=== PATIENT | male | born 1980 | race Caucasian/White ===

== ENCOUNTER 2016-08-18 03:51 | Inpatient (IN) | payer MEDICAID ==
[~2016-08-18] VITALS: Ht 162.6 cm; Wt 72.7 kg
[~2016-08-18 03:51] MED LIST: OLAN10TA3 PO; QUET200T PO
[2016-08-18] MEDS ORDERED: LORazepam 2 MG TABLET PO PRN (06:00)
[2016-08-18] MEDS ORDERED: HALOPERIDOL 5 MG TABLET PO PRN (06:00)
[2016-08-18] MEDS ORDERED: ZOLPIDEM TARTRATE 10 MG TABLET PO PRN (06:00)
[2016-08-18 07:09] VITALS: BP 125/85
[2016-08-18] MEDS ORDERED: ALBUTEROL SULFATE HFA 90 MCG/PUFF 8 GM INHALER IH PRN (08:15)
[2016-08-18] MEDS ORDERED: BACITRACIN 28.4 GM OINTMENT TP PRN (08:15)
[2016-08-18] MEDS ORDERED: MAG HYDROX/AL HYDROX/SIMETH ES 30 ML SUSPENSION UDCUP PO PRN (08:15)
[2016-08-18] MEDS ORDERED: IBUPROFEN 600 MG TABLET PO PRN (08:15)
[2016-08-18] MEDS ORDERED: PETROLATUM,WHITE 71 GM JELLY TP PRN (08:15)
[2016-08-18] MEDS ORDERED: ACETAMINOPHEN 325 MG TABLET PO PRN (08:15)
[2016-08-18] MEDS ORDERED: CloNIDine HCL 0.1 MG TABLET PO PRN (08:15)
[2016-08-18] MEDS ORDERED: ONDANSETRON HCL 4 MG TABLET PO PRN (08:15)
[2016-08-18] MEDS ORDERED: LOPERAMIDE HCL 2 MG CAPSULE PO PRN (08:15)
[2016-08-18] MEDS ORDERED: MAGNESIUM HYDROXIDE SUSPENSION 30 ML UDCUP PO PRN (08:15)
[2016-08-18 08:16] VITALS: BP 125/84
[2016-08-18 08:21] LABS: ALANINE AMINOTRANSFERASE 69 U/L (12-78); ALBUMIN 3.7 g/dL (3.4-5.0); ANION GAP 8 mmol/L (8-16); ASPARTATE AMINOTRANSFERASE 22 U/L (15-37); BILIRUBIN,TOTAL 0.4 mg/dL (0.1-1.0); CALCIUM, TOTAL 8.5 mg/dL (8.8-10.5); CARBON DIOXIDE 30 mmol/L (22-29); CHLORIDE 104 mmol/L (98-107); CHOL/HDL RATIO 7.3 (4.2-7.3); CREATININE 1.04 mg/dL (0.60-1.30); GLOMERULAR FILTR. RATE CALC > 60 mL/min (>60); POTASSIUM 4.3 mmol/L (3.5-5.1); SODIUM SERUM 142 mmol/L (136-145); TOTAL PROTEIN, SERUM 6.8 g/dL (6.4-8.2); UREA NITROGEN, BLOOD 17 mg/dL (7-18)
[2016-08-18] MEDS ORDERED: BENZOCAINE/MENTHOL LOZENGE [8 LOZENGES/PACKET] MM PRN (08:30)
[2016-08-18] MEDS: FISH OIL/OMEGA-3 FATTY ACIDS 500 MG CAPSULE PO SCH (10:28)
[2016-08-18] MEDS: CHOLECALCIFEROL (VIT D3) 1,000 UNITS TABLET PO SCH (10:29)
[2016-08-18 16:02] VITALS: BP 108/62
[2016-08-18] MEDS: OLANZapine 10 MG TABLET PO SCH (21:21)
[2016-08-18] MEDS: BENZTROPINE MESYLATE 1 MG TABLET PO SCH (21:21)
[2016-08-19] MEDS: LEVOTHYROXINE SODIUM 25 MCG TABLET PO SCH (07:01)
[2016-08-19 08:16] VITALS: BP 125/64
[2016-08-19] MEDS: CHOLECALCIFEROL (VIT D3) 1,000 UNITS TABLET PO SCH (08:48)
[2016-08-19] MEDS: VENLAFAXINE HCL 75 MG ER CAPSULE PO SCH (08:48)
[2016-08-19] MEDS: FISH OIL/OMEGA-3 FATTY ACIDS 500 MG CAPSULE PO SCH (08:50)
[2016-08-19 16:30] VITALS: BP 129/78
[2016-08-19] MEDS: OLANZapine 10 MG TABLET PO SCH (21:36)
[2016-08-19] MEDS: BENZTROPINE MESYLATE 1 MG TABLET PO SCH (21:36)
[2016-08-20] MEDS: LEVOTHYROXINE SODIUM 25 MCG TABLET PO SCH (06:21)
[2016-08-20 08:00] VITALS: BP 137/73
[2016-08-20] MEDS: VENLAFAXINE HCL 75 MG ER CAPSULE PO SCH (09:45)
[2016-08-20] MEDS: FISH OIL/OMEGA-3 FATTY ACIDS 500 MG CAPSULE PO SCH (09:45)
[2016-08-20] MEDS: CHOLECALCIFEROL (VIT D3) 1,000 UNITS TABLET PO SCH (09:45)
[2016-08-20 16:00] VITALS: BP 138/86
[2016-08-20] MEDS: BENZTROPINE MESYLATE 1 MG TABLET PO SCH (21:21)
[2016-08-20] MEDS: OLANZapine 10 MG TABLET PO SCH (21:21)
[2016-08-21] MEDS ORDERED: BENZ1TAB10 PO (01:02)
[2016-08-21] MEDS ORDERED: VITAD1000 PO (01:02)
[2016-08-21] MEDS ORDERED: OMEG-12 PO (01:02)
[2016-08-21] MEDS ORDERED: LEVO25TA4 PO (01:02)
[2016-08-21] MEDS ORDERED: VENL-193 PO (01:02)
[2016-08-21 06:18] VITALS: BP 132/79
[2016-08-21] MEDS: LEVOTHYROXINE SODIUM 25 MCG TABLET PO SCH (06:48)
[2016-08-21 08:00] VITALS: BP 114/69
[2016-08-21] MEDS: FISH OIL/OMEGA-3 FATTY ACIDS 500 MG CAPSULE PO SCH (09:00)
[2016-08-21] MEDS: CHOLECALCIFEROL (VIT D3) 1,000 UNITS TABLET PO SCH (12:21)
[2016-08-21] MEDS: VENLAFAXINE HCL 75 MG ER CAPSULE PO SCH (12:21)
== END 2016-08-21 13:30 | disposition home or self-care (01) | DRG 750 ==
LOC: 3EI 06:55
PROC: GZHZZZZ Group Psychotherapy (ICD-10-PCS; principal; 2016-08-18)
DX: F25.1 Schizoaffective disorder, depressive type (principal); R45.851 Suicidal ideations; E55.9 Vitamin D deficiency, unspecified; F17.210 Nicotine dependence, cigarettes, uncomplicated; F12.90 Cannabis use, unspecified, uncomplicated; F14.90 Cocaine use, unspecified, uncomplicated; F43.12 Post-traumatic stress disorder, chronic; E03.9 Hypothyroidism, unspecified; E78.5 Hyperlipidemia, unspecified; F15.90 Other stimulant use, unspecified, uncomplicated; Z79.899 Other long term (current) drug therapy; Z71.51 Drug abuse counseling and surveillance of drug abuser; Z71.6 Tobacco abuse counseling; Z91.5 Personal history of self-harm

== ENCOUNTER 2016-09-03 16:43 | Emergency (ER) | payer MEDICAID, OTHER ==
[~2016-09-03] VITALS: Ht 165.1 cm; Wt 79.5 kg
[~2016-09-03 16:43] MED LIST changes: +BENZ1TAB10 PO; +LEVO25TA4 PO; +OMEG-12 PO; -QUET200T PO; +VENL-193 PO; +VITAD1000 PO
[2016-09-03 17:18] VITALS: BP 162/96
[2016-09-03 17:49] LABS: BASOPHILS % (AUTO) 1.3 % (0.0-2.0); EOSINOPHILS % (AUTO) 0.8 % (1.0-6.0); HEMATOCRIT 39.6 % (41-53); HEMOGLOBIN 12.7 g/dL (13.5-17.5); LYMPHOCYTES # (AUTO) 2.1 K/uL (1.0-4.8); LYMPHOCYTES % (AUTO) 19.6 % (22.0-44.0); MEAN CORPUSCULAR HEMOGLOBIN 26.8 pg (26.0-34.0); MEAN CORPUSCULAR VOLUME 84 fL (80-100); MONOCYTES % (AUTO) 9.4 % (2.0-9.0); NEUTROPHILS # (AUTO) 7.4 K/uL (1.8-7.7); NEUTROPHILS % (AUTO) 68.9 % (40.0-70.0); PLATELET COUNT (AUTO) 305 K/uL (150-450); RED BLOOD CELL COUNT(AUTO) 4.74 MIL/uL (4.50-5.90); WHITE BLOOD COUNT (AUTO) 10.7 K/uL (4.5-11.0)
[2016-09-03 17:55] LABS: ANION GAP 10 mmol/L (8-16); CALCIUM, TOTAL 9.1 mg/dL (8.8-10.5); CARBON DIOXIDE 27 mmol/L (22-29); CHLORIDE 99 mmol/L (98-107); CREATININE 1.24 mg/dL (0.60-1.30); GLOMERULAR FILTR. RATE CALC > 60 mL/min (>60); POTASSIUM 4.1 mmol/L (3.5-5.1); SODIUM SERUM 136 mmol/L (136-145); UREA NITROGEN, BLOOD 23 mg/dL (7-18)
[2016-09-03 18:01] LABS: ALANINE AMINOTRANSFERASE 111 U/L (12-78); ALBUMIN 4.5 g/dL (3.4-5.0); ASPARTATE AMINOTRANSFERASE 87 U/L (15-37); BILIRUBIN,TOTAL 0.5 mg/dL (0.1-1.0); TOTAL PROTEIN, SERUM 8.3 g/dL (6.4-8.2)
== END 2016-09-03 18:40 | disposition home or self-care (01) ==
LOC: EMS 16:44
DX: F25.9 Schizoaffective disorder, unspecified (principal); F17.210 Nicotine dependence, cigarettes, uncomplicated; F19.90 Other psychoactive substance use, unspecified, uncomplicated
CPT/HCPCS: 36415; 80053; 85025; 99284; G0480